=== PATIENT | female | born 1985 | race Caucasian/White ===

== ENCOUNTER → 2016-04-24 | Outpatient (CLI) | payer BC ==
[~2016-04-24] MED LIST: ACET-749 PO; MTR600X PO; PRENTAB26 PO
[2016-04-24 13:48] LABS: CHOLESTEROL/HDL RATIO 4.8; THYROID STIMULATING HORMONE 2.65 uIu/ml (0.300-4.500)
== END | disposition home or self-care (01) ==
LOC: C.LABMFLN 11:20
PROVIDERS: ATTEND Family Medicine
DX: Z13.1 Encounter for screening for diabetes mellitus (principal); Z13.220 Encounter for screening for lipoid disorders; E66.9 Obesity, unspecified

== ENCOUNTER → 2016-08-21 | Outpatient (CLI) | payer BC ==
[2016-08-21 14:43] LABS: BASO % 0.3 %; BASO ABS # 0.02 K/uL (0-0.2); COMPLETE YES; EOS % 1.9 %; HEMATOCRIT 39.2 % (37-47); IG% 0.3 %; LYMPH % 26.5 %; LYMPH ABS # 2.06 K/uL (1.2-3.4); MEAN CELL VOLUME 87.9 fL (80-100); MEAN CORPUSCULAR HEMOGLOBIN 29.4 pg (25-34); MEAN CORPUSCULAR HGB CONC 33.4 g/dl (32-36); MEAN PLATELET VOLUME 10.7 fL (7.4-10.4); MONO % 7.2 %; NEUT % 63.8 %; PLATELET COUNT 235 K/uL (130-400); RED BLOOD COUNT 4.46 M/uL (4.2-5.4); WHITE BLOOD COUNT 7.77 K/uL (4.8-10.8)
== END | disposition home or self-care (01) ==
LOC: C.LAB1850 12:32
PROVIDERS: ATTEND Obstetrics & Gynecology
DX: Z34.90 Encounter for supervision of normal pregnancy, unspecified, unspecified trimester (principal)

== ENCOUNTER → 2016-08-21 | Outpatient (CLI) | payer BC ==
[2016-08-21 16:53] LABS: URINE APPEARANCE CLEAR (CLEAR); URINE BILIRUBIN NEG (NEG); URINE COLOR DK YELLOW; URINE NITRITE NEG (NEG); URINE SPECIFIC GRAVITY 1.025 (1.000-1.030); UROBILINOGEN NEG (NEG)
[2016-08-21 17:05] LABS: MANUAL MICROSCOPIC REQUIRED? NO; REVIEW REQ? NO
[2016-08-24 07:27] LABS: CHLAMYDIA TRACH RNA*** NOT DETECTED (NOT DETECTED); GC (NEIS GONORRHOEAE)RNA** NOT DETECTED (NOT DETECTED)
== END | disposition home or self-care (01) ==
LOC: C.LABSPEC 15:54
PROVIDERS: ATTEND Obstetrics & Gynecology
DX: Z34.90 Encounter for supervision of normal pregnancy, unspecified, unspecified trimester (principal)

== ENCOUNTER → 2016-10-22 | Outpatient (CLI) | payer BC ==
[2016-10-22 14:48] LABS: GTGD 50 Grams
== END ==
LOC: C.LAB1850 10:10
PROVIDERS: ATTEND Obstetrics & Gynecology
DX: Z34.90 Encounter for supervision of normal pregnancy, unspecified, unspecified trimester (principal)

== ENCOUNTER → 2017-01-07 | Outpatient (CLI) | payer BC ==
[2017-01-07 11:20] LABS: URINE APPEARANCE CLEAR (CLEAR); URINE BILIRUBIN NEG (NEG); URINE COLOR YELLOW; URINE EPITHELIAL CELL AUTO >30 /lpf (0-5); URINE NITRITE NEG (NEG); URINE PH 6.5 (4.5-7.5); URINE SPECIFIC GRAVITY 1.016 (1.000-1.030); UROBILINOGEN NEG (NEG)
[2017-01-07 11:41] LABS: MANUAL MICROSCOPIC REQUIRED? NO; REVIEW REQ? NO
== END | disposition home or self-care (01) ==
LOC: C.LABSPEC 10:51
PROVIDERS: ATTEND Obstetrics & Gynecology
DX: Z34.82 Encounter for supervision of other normal pregnancy, second trimester (principal)

== ENCOUNTER → 2017-01-28 | Outpatient (CLI) | payer BC ==
[2017-01-28 10:38] LABS: HEMATOCRIT 35.3 % (37-47)
[2017-01-28 11:34] LABS: GTGD 50 Grams
== END | disposition home or self-care (01) ==
LOC: C.LAB1850 09:39
PROVIDERS: ATTEND Obstetrics & Gynecology
DX: Z34.82 Encounter for supervision of other normal pregnancy, second trimester (principal)

== ENCOUNTER → 2017-03-05 | Outpatient (CLI) | payer BC | END | disposition home or self-care (01) | LOC: C.LABSPEC 13:36 | PROVIDERS: ATTEND Obstetrics & Gynecology | DX: Z34.83 Encounter for supervision of other normal pregnancy, third trimester (principal) ==

== ENCOUNTER 2017-04-07 02:00 | Inpatient (IN) | payer BC ==
[~2017-04-07] VITALS: Ht 165.1 cm; Wt 110.2 kg
[2017-04-07] MEDS ORDERED: LACTATED RINGER'S 1000ML 1,000 ML IV PRN (02:10)
[2017-04-07] MEDS ORDERED: LACTATED RINGER'S 1000ML 1,000 ML IV SCH (02:10)
[2017-04-07] MEDS ORDERED: BUPIVACAINE 0.25% 30 ML VIAL ONE (02:11)
[2017-04-07] MEDS ORDERED: FENTANYL CITRATE INJ 50 MCG/1 ML 2 ML VIAL ONE (02:11)
[2017-04-07] MEDS ORDERED: EpHEDrine SULFATE INJ 50 MG/ML AMP ONE (02:11)
[2017-04-07] MEDS ORDERED: FENTANYL 2MCG/ML ROPIV 1.25MG/ML 100ML BAG EPI ONE (02:12)
[2017-04-07 02:25] VITALS: Ht 165.1 cm; Wt 110.2 kg
[2017-04-07 02:38] LABS: HEMATOCRIT 37.6 % (37-47); HEMOGLOBIN 12.9 g/dL (12.0-16.0); MEAN CELL VOLUME 88.1 fL (80-100); MEAN CORPUSCULAR HEMOGLOBIN 30.2 pg (25-34); MEAN CORPUSCULAR HGB CONC 34.3 g/dl (32-36); MEAN PLATELET VOLUME 11.3 fL (7.4-10.4); PLATELET COUNT 175 K/uL (130-400); RED CELL DISTRIBUTION WIDTH CV 13.3 % (11.5-14.5); WHITE BLOOD COUNT 10.05 K/uL (4.8-10.8)
[2017-04-07] MEDS ORDERED: OXYTOCIN 30 UNITS/500ML NSS IV ONE (03:17)
[2017-04-07] MEDS ORDERED: LACTATED RINGER'S 1000ML 500 ML IV PRN (03:21)
[2017-04-07] MEDS ORDERED: NALOXONE HCL INJ 1 MG in SODIUM CHLORIDE 0.9% 1000ML 1,000 ML IV PRN (03:21)
[2017-04-07] MEDS ORDERED: EpHEDrine SULFATE INJ 50 MG/ML AMP IV PRN (03:30)
[2017-04-07] MEDS ORDERED: NALOXONE HCL INJ 0.4 MG/1 ML VIAL/CARP IV PRN (03:30)
[2017-04-07] MEDS ORDERED: ONDANSETRON INJ 2 MG/ML 2 ML VIAL IV PRN (03:30)
[2017-04-07] MEDS ORDERED: DiphenhydrAMINE HCL 50 MG/ML VIAL IV PRN (03:30)
[2017-04-07] MEDS ORDERED: NALBUPHINE HCL INJ 10 MG/ML AMP IV PRN (03:30)
[2017-04-07] MEDS ORDERED: FENTANYL 2MCG/ML ROPIV 1.25MG/ML 100ML BAG EPI PRN (03:30)
[2017-04-07] MEDS ORDERED: OXYCODONE/ACETAMINOPHEN 5-325 TAB PO PRN (03:45)
[2017-04-07] MEDS ORDERED: DIPHTHERIA/TETANUS/PERTUSSIS 0.5 ML SYR/VIAL IM. ONE (03:45)
[2017-04-07] MEDS ORDERED: HYDROCORTISONE ACETATE 25 MG SUPP PR PRN (03:45)
[2017-04-07] MEDS ORDERED: OXYTOCIN 30 UNITS/500ML NSS IV PRN (03:45)
[2017-04-07] MEDS ORDERED: BENZOCAINE 20% AER SPR 82.5 GM CAN EXT PRN (03:45)
[2017-04-07] MEDS ORDERED: ACETAMINOPHEN/CODEINE 300/30MG TAB PO PRN ×2 (03:45)
[2017-04-07] MEDS ORDERED: SUPERCREAM 0.870 % 15GM JAR EXT PRN (03:45)
[2017-04-07] MEDS ORDERED: ACETAMINOPHEN 325 MG TAB PO PRN (03:45)
[2017-04-07] MEDS ORDERED: LANOLIN OINT EXT PRN (03:45)
--- NOTE | 2017-04-07 03:50 | Anesthesia Procedure Note ---
Anesthesia Epidural Removal Nt Date & Time Apr 07, 2017 at 03:50 Vital Signs Pain Intensity: 9.0 Notes Mental Status: alert / awake / arousable, participated in evaluation Nausea / Vomiting: adequately controlled Pain: adequately controlled Airway Patency, RR, SpO2: stable & adequate BP & HR: stable & adequate Hydration State: stable & adequate Neuraxial Anesthesia: was administered, sensory block is resolving Anesthetic Complications: no major complications apparent, pt satisfied with anesthetic care Epidural: removed without complications, with tip intact
[2017-04-07] MEDS: IBUPROFEN 600 MG TAB PO PRN ×3 (04:25→17:31)
[2017-04-07 06:15] VITALS: BP 128/74; PULSE 70; TEMP 36.7
--- NOTE | 2017-04-07 06:40 | DELIVERY SUMMARY ---
DATE OF OPERATION: 04/07/2017 Magdalene is a 41 weeks, second baby, group B strep negative, uncomplicated . She arrived in labor and deliver in active labor at 8 cm. She requested epidural and received this. Later after her epidural she found the urge to push. Her membranes were ruptured for thin meconium and baby was at the perineum and she was ready to push. She pushed over several contractions and delivered a baby in right occiput anterior position. Mouth and then nares suctioned with bulb. Loose nuchal cord passed over the head. Gentle traction used. Baby delivered without excessive force. Live vigorous male infant. Cord clamped and cut. Cord gas was obtained. Cord blood obtained. Placenta removed with gentle traction. Second degree tear repaired with 3-0 Vicryl. Estimated blood loss was 300 mL. Sponge, needle and instrument counts were correct. I attest to the content of the Intraoperative Record and any orders documented therein. Any exception s are noted below.
[2017-04-07 07:45] VITALS: BP 114/73; PULSE 74; TEMP 36.8
[2017-04-07] MEDS: PRENATAL VITAMIN TAB PO SCH (08:48)
[2017-04-07] MEDS: DOCUSATE SODIUM 100 MG CAP PO SCH ×2 (08:48→19:54)
[2017-04-07 11:45] VITALS: BP 119/76; PULSE 71; TEMP 36.5
[2017-04-07 16:05] VITALS: BP 118/77; PULSE 86; TEMP 36.8; O2SAT 96
[2017-04-07 20:00] VITALS: BP 134/84; PULSE 91; TEMP 36.5; O2SAT 97
[2017-04-07 23:40] VITALS: BP 130/82; PULSE 72; TEMP 36.8
[2017-04-08 03:20] VITALS: BP 109/71; PULSE 79; TEMP 36.3
[2017-04-08] MEDS: IBUPROFEN 600 MG TAB PO PRN ×4 (03:27→19:36)
[2017-04-08 06:18] LABS: HEMATOCRIT 36.5 % (37-47); HEMOGLOBIN 12.4 g/dL (12.0-16.0)
--- NOTE | 2017-04-08 06:24 | Progress Note ---
Subjective Apr 08, 2017. Subjective conversation w/ patient (Patient seen and examined at bedside) Ambulation: ambulating normally Voiding: no voiding problems Passing Gas: Yes Diet Tolerance: Regular Diet Lochia: Moderate Feeding Type: Breast Feeding Pain: 2/10 pain noted, well controlled w/motrin Comment: Pt states she had problems with hemorrhoids after prior and is concerned that they are flaring up again. Review of Systems Constitutional: No fever, No chills, No sweats Respiratory: No cough, No shortness of breath Cardiac: No chest pain Abdomen: No pain, No nausea, No vomiting Female : No dysuria Objective Vital Signs Date Time Temp Pulse Resp B/P (MAP) Pulse Ox O2 Delivery O2 Flow Rate FiO2 04/08/17 03:20 36.3 79 20 109/71 (84) Room Air 04/07/17 23:40 Room Air 04/07/17 23:40 36.8 72 18 130/82 (98) Room Air 04/07/17 20:00 36.5 91 18 134/84 (101) 97 Room Air 04/07/17 16:05 96 Room Air 04/07/17 16:05 36.8 86 18 118/77 (91) 96 Room Air 04/07/17 11:45 36.5 71 16 119/76 (90) Room Air 04/07/17 07:45 Room Air 04/07/17 07:45 36.8 74 18 114/73 (87) Room Air Physical Exam General Appearance: WELL-APPEARING, WD/WN, NO APPARENT DISTRESS Respiratory/Chest: chest non-tender, lungs clear, normal breath sounds Cardiovascular: regular rate, rhythm, no edema, no gallop, no murmur Abdomen: normal bowel sounds, non tender, soft Fundus: Firm, Non-Tender, Relation to Umbilicus (1 below) Extremities: normal inspection, no pedal edema, no calf tenderness Laboratory Results Last 24 Hours Test 04/08/17 06:10 Medications Current Inpatient Medications Medications (Trade) Dose Ordered Sig/Elbert Route Start Time Stop Time Status Last Admin Dose Admin Oxytocin (Pitocin IV) 30 units UD PRN IV 04/07/17 03:45 05/07/17 03:44 Benzocaine (Dermoplast Aero Spr) 1 appln PRN PRN EXT 04/07/17 03:45 05/07/17 03:44 04/07/17 17:31 1 APPLN Cocaine HCl (Supercream 0.870% Cr) BID PRN EXT 04/07/17 03:45 04/21/17 03:44 Hydrocortisone Acetate (Anusol Hc Supp) 25 mg BID PRN AK 04/07/17 03:45 05/07/17 03:44 Lanolin (Lanolin Oint) PRN PRN EXT 04/07/17 03:45 05/07/17 03:44 Prenat Multivit/ [place]/Iron/Folic Ac ( Vitamin Tab) 1 tab DAILY PO 04/07/17 08:00 05/07/17 07:59 04/07/17 08:48 1 TAB Ibuprofen (Motrin Tab) 600 mg Q4H PRN PO 04/07/17 03:45 05/07/17 03:44 04/08/17 03:27 600 MG Acetaminophen (Tylenol Tab) 650 mg Q6H PRN PO 04/07/17 03:45 05/07/17 03:44 Acetaminophen/ Codeine Phosphate (Tylenol w/ Codeine #3 Tab) 1 tab Q4H PRN PO 04/07/17 03:45 05/07/17 03:44 Acetaminophen/ Codeine Phosphate (Tylenol w/ Codeine #3 Tab) 2 tab Q4H PRN PO 04/07/17 03:45 05/07/17 03:44 Bisacodyl (Dulcolax Tab) 5 mg 20 PO 04/08/17 20:00 04/08/17 20:01 Bisacodyl (Dulcolax Supp) 10 mg DAILY PRN AK 04/09/17 07:00 Docusate Sodium (coLACE CAP) 100 mg BID PO 04/07/17 08:00 05/07/17 07:59 04/07/17 19:54 100 MG Assessment and Plan Post- Day#: 1 Continue Routine Care: 31 year old s/p NVD day 1 - pt doing well clinically - O+, GBS -ve and rubella immune - vitals reviewed and wnl - continue to encourage ambulation and - motrin prn for pain - hemorrhoids - continue supercream Resident Physician Supervision Note: I was present with Dr. Scott during the history and exam. I discussed the case with the resident and agree with the findings and plan as documented in the note. Any exceptions or clarifications are listed here: PPD#1 doing well. Has hemorrhoid pain - will try supercream. Plans for home tomorrow. Documented By: Veronica Tineo Resident Tracking Resident Involvement: Resident Care Provided Care Provided: OB Delivery
--- NOTE | 2017-04-08 06:41 | Discharge Instructions ---
Discharge Instructions Date of Service Apr 08, 2017. Admission Reason for Admission: Normal Labor Discharge Discharge Diagnosis / Problem: Vaginal Delivery Discharge Goals Goal(s): Routine recovery after delivery Medications Continue Dispensed Medications: supercream, dermaplast, tucks, lansinoh Activity Recommendations Activity Limitations: per Instructions/Follow-up section . Instructions / Follow-Up Instructions / Follow-Up ACTIVITY RECOMMENDATIONS: * Gradual return to full activity over the next 2-3 weeks. * No lifting - nothing heavier than baby over the next 2-3 weeks. * Do not engage in vigorous exercise, sexual activity or sports until cleared by your physician. * Do not drive or operate any motorized equipment until cleared by your physician. * You may shower/bathe daily. MEDICATIONS: For discomfort or pain, you may use Acetaminophen (Tylenol), Ibuprofen (Advil), or Naproxen (Aleve) following the package directions. For constipation you may use Colace following the package directions. BREAST CARE: If you are not breast feeding: * Wear a supportive bra 24 hours a day for one to two weeks. * Avoid stimulating your breasts and nipples as much as possible during the first few weeks after delivery. * When taking a shower, have the warm water hit your back, not breasts. * When your breasts feel full, apply ice packs. Usually three to four times a day helps ease the discomfort. * Take a mild pain medication (Tylenol / Motrin) when you are uncomfortable. If breast feeding: * Use breast milk to lubricate nipples. Lansinoh cream may be used for sore nipples. You do not need to remove cream prior to breast feeding. If using a different brand of cream, check the label for directions regarding removal of cream prior to nursing. * Wear a supportive bra. * If having problems with breasts or breast feeding, call a customer service consultant or your health care provider. EPISIOTOMY CARE: After delivery, if you have an episiotomy (stitches), the following steps will ease discomfort and aid healing. * For the first 24 hours after delivery, place ice packs next to your episiotomy to help reduce swelling. * After the first 24 hour-period, sitz baths, either portable or in the tub, are suggested. A shower with a shower arm sprayed over the episiotomy may be comforting. * Judy care should be done after each voiding and bowel movement. Squirt warm water from a plastic bottle over the perineum (region of the body between the anus and urinary opening) and pat dry. * Use Dermoplast to ease discomfort. Shake container. [place] directly over the episiotomy. Place a Tucks on a clean sanitary pad next to your episiotomy. SPECIAL CARE INSTRUCTIONS: When you are discharged from the hospital, it is important for you to follow the instructions listed below: * During the first week at home, you should be able to care for yourself and your baby. In addition, the usual light household activities are encouraged. * Limit your activities to the way you feel. Do not try to clean the house or move furniture. Be sensible. * If you actively engage in sports and have done so up until the time of your delivery, you may resume these activities as soon as you feel able. This may take up to one month or even longer. Use good judgment. * Continue to take your vitamins for at least six weeks after the of your baby. * Your diet need not be limited unless you were on a special diet before your delivery. Breast-feeding mothers need around 2500 calories per day and at least 64-80 ounces of fluid per day (8 to 10 glasses). * You should eat foods from the four major food groups. Crash diets or fad diets are to be avoided. Eating lean meats, fresh fruits and vegetables, low-fat dairy products, high fiber foods and a regular exercise program, will help you get back to your pre- weight without putting your health at risk. * Constipation is sometimes a problem after delivery. Take a mild laxative as needed. If breast feeding, Milk of Magnesia is acceptable to use. You may use a suppository or Fleets enema if no episiotomy. * A daily shower or tub bath is suggested. Be sure to thoroughly and gently dry the perineum. * A bloody vaginal discharge will usually continue until around four weeks post . A small amount of bleeding may continue for as long as six weeks. Vaginal discharge changes from the bright red bleeding after delivery to pink then brownish and finally yellowish-pink before becoming white and disappearing. * Bleeding may increase with activity. Your first period may come in 4-8 weeks. If you are breast feeding, your period may be delayed even longer. * [place] (sex) can begin whenever both you and your partner feel comfortable and do not have any form of genital infection. It is recommended that you wait at least six weeks for internal and external healing to occur. If you have questions, please talk to your health care practitioner. A condom should be used to prevent infection and . * Foreplay, gentle intercourse and lubrication is very important the first several times to prevent pain. A water-based lubricant such as K-Y jelly or Astroglide may be used. * If you have RH negative blood and your baby is RH positive, you will receive RHOGAM by injection prior to discharge. The nurse will give you a card to keep with you that has the date and place that you received RHOGAM after delivery. * During your care, you had a Rubella screen done to check for the presence of rubella antibodies in your blood. If your test was negative, you will receive a Rubella vaccine prior to discharge. This vaccine may cause a fever, soreness at the injection site and flu-like symptoms. If these symptoms persist, notify your health care practitioner. is not advised for one month after a Rubella vaccine. * Verbalizes understanding of car seat law as reviewed with patient nursing. * Car Seat hand-out given and reviewed with patient by nursing. * Shaken baby information reviewed with patient by nursing. Call you doctor if: * Heavy bleeding (saturating several pads an hour) or passing clots the size of your fist. * A fever >101 degrees F (38.3 degrees C) on two occasions four hours apart and /or chills. * Unusual pain in the pelvic or vaginal areas. * "Baby Blues" lasting longer than two weeks. If you have any questions or concerns, call your health care practitioner at . FOLLOW UP VISIT: * Please call the office at to schedule a 6 week examination. It is important you keep this appointment. It is important for you to make arrangements for either yearly or twice yearly check-ups thereafter. Current Hospital Diet Patient's current hospital diet: Regular OB Diet Discharge Diet Recommended Diet: Regular Diet Pending Studies Studies pending at discharge: no Medical Emergencies . Who to Call and When: Medical Emergencies: If at any time you feel your situation is an emergency, please call 911 immediately. . Non-Emergent Contact Non-Emergency issues call your: Primary Care Provider . . "Provider Documentation" section prepared by Lavon Scott. . VTE Core Measure Inpt VTE Proph given/why not?: Treatment not indicated
[2017-04-08 08:30] VITALS: BP 120/86; PULSE 88; TEMP 36.5
[2017-04-08] MEDS: DOCUSATE SODIUM 100 MG CAP PO SCH ×2 (08:58→19:36)
[2017-04-08] MEDS: PRENATAL VITAMIN TAB PO SCH (08:58)
[2017-04-08 15:30] VITALS: BP 120/77; PULSE 80; TEMP 36.4; O2SAT 97
[2017-04-08] MEDS: BISACODYL 5 MG TABEC PO SCH ×2 (19:36→21:16)
[2017-04-09 00:35] VITALS: BP 125/80; PULSE 84; TEMP 36.8; O2SAT 97
[2017-04-09] MEDS: IBUPROFEN 600 MG TAB PO PRN (05:15)
--- NOTE | 2017-04-09 06:15 | Progress Note ---
Subjective Apr 09, 2017. Subjective conversation w/ patient (Patient seen and examined at the bedside) Ambulation: ambulating normally Voiding: no voiding problems Diet Tolerance: Regular Diet Lochia: Moderate Feeding Type: Breast Feeding Pain: 3-5/10 cramping with Review of Systems Constitutional: No fever, No chills, No sweats Respiratory: No cough, No shortness of breath Cardiac: No chest pain, No edema Abdomen: No pain, No nausea, No vomiting, No diarrhea Female : No dysuria Objective Vital Signs Date Time Temp Pulse Resp B/P (MAP) Pulse Ox O2 Delivery O2 Flow Rate FiO2 04/09/17 00:35 97 Room Air 04/09/17 00:35 36.8 84 20 125/80 (95) 97 Room Air 04/08/17 15:30 36.4 80 18 120/77 (91) 97 Room Air 04/08/17 15:30 97 Room Air 04/08/17 08:30 36.5 88 20 120/86 (97) Physical Exam General Appearance: WELL-APPEARING, WD/WN, NO APPARENT DISTRESS Respiratory/Chest: chest non-tender, lungs clear, normal breath sounds, no respiratory distress, no accessory muscle use Cardiovascular: regular rate, rhythm, no edema, no gallop, no murmur Abdomen: normal bowel sounds, non tender, no organomegaly Fundus: Firm, Non-Tender, Relation to Umbilicus (2 below u) Extremities: normal range of motion, normal inspection, no pedal edema, no calf tenderness Laboratory Results Last 24 Hours Test 04/09/17 04:44 Medications Current Inpatient Medications Medications (Trade) Dose Ordered Sig/Elbert Route Start Time Stop Time Status Last Admin Dose Admin Oxytocin (Pitocin IV) 30 units UD PRN IV 04/07/17 03:45 05/07/17 03:44 Benzocaine (Dermoplast Aero Spr) 1 appln PRN PRN EXT 04/07/17 03:45 05/07/17 03:44 04/07/17 17:31 1 APPLN Cocaine HCl (Supercream 0.870% Cr) BID PRN EXT 04/07/17 03:45 04/21/17 03:44 04/08/17 06:45 15 GM Hydrocortisone Acetate (Anusol Hc Supp) 25 mg BID PRN [place] 04/07/17 03:45 05/07/17 03:44 Lanolin (Lanolin Oint) PRN PRN EXT 04/07/17 03:45 05/07/17 03:44 Prenat Multivit/ [place]/Iron/Folic Ac ( Vitamin Tab) 1 tab DAILY PO 04/07/17 08:00 05/07/17 07:59 04/08/17 08:58 1 TAB Ibuprofen (Motrin Tab) 600 mg Q4H PRN PO 04/07/17 03:45 05/07/17 03:44 04/09/17 05:15 600 MG Acetaminophen (Tylenol Tab) 650 mg Q6H PRN PO 04/07/17 03:45 05/07/17 03:44 04/08/17 16:36 650 MG Acetaminophen/ Codeine Phosphate (Tylenol w/ Codeine #3 Tab) 1 tab Q4H PRN PO 04/07/17 03:45 05/07/17 03:44 Acetaminophen/ Codeine Phosphate (Tylenol w/ Codeine #3 Tab) 2 tab Q4H PRN PO 04/07/17 03:45 05/07/17 03:44 Bisacodyl (Dulcolax Supp) 10 mg DAILY PRN [place] 04/09/17 07:00 Docusate Sodium (coLACE CAP) 100 mg BID PO 04/07/17 08:00 05/07/17 07:59 04/08/17 19:36 100 MG Assessment and Plan Post- Day#: 2 Continue Routine Care: 31 year old s/p NVD day 2 - pt doing well clinically - O+, GBS -ve and rubella immune - vitals reviewed and wnl - continue to encourage ambulation and - continue motrin prn for pain - Hgb stable. 12.9 -> 12.4. Will review today's results when available. - hemorrhoids - continue supercream, stool softeners. Advised PCP follow up after d/c - will discuss d/c instructions as pt ready for discharge today Lavon Scott, PGY1 Resident Physician Supervision Note: I was present with Dr. Scott during the history and exam. I discussed the case with the resident and agree with the findings and plan as documented in the note. Any exceptions or clarifications are listed here: doing well, ready for discharge. discussed hemorrhoids and routine instructions. f/u 6 wks pp check. Documented By: Hilary Mccollum Resident Tracking Resident Involvement: Resident Care Provided Care Provided: OB Delivery
[2017-04-09] MEDS ORDERED: BISACODYL 10 MG SUPP PR PRN (07:00)
[2017-04-09 07:40] VITALS: BP 115/79; PULSE 80; TEMP 36.6
[2017-04-09] MEDS: DOCUSATE SODIUM 100 MG CAP PO SCH (07:45)
[2017-04-09] MEDS: PRENATAL VITAMIN TAB PO SCH (07:45)
[2017-04-09 07:51] LABS: HEMATOCRIT 33.7 % (37-47); HEMOGLOBIN 11.5 g/dL (12.0-16.0); MEAN CELL VOLUME 89.2 fL (80-100); MEAN CORPUSCULAR HEMOGLOBIN 30.4 pg (25-34); MEAN CORPUSCULAR HGB CONC 34.1 g/dl (32-36); MEAN PLATELET VOLUME 11.3 fL (7.4-10.4); PLATELET COUNT 172 K/uL (130-400); RED CELL DISTRIBUTION WIDTH CV 13.3 % (11.5-14.5); RED CELL DISTRIBUTION WIDTH SD 42.8 fL (36.4-46.3); WHITE BLOOD COUNT 9.13 K/uL (4.8-10.8)
[2017-04-09 10:35] VITALS: BP 115/79; PULSE 80; TEMP 36.6; O2SAT 97
== END 2017-04-09 11:45 | disposition home or self-care (01) | DRG 775 ==
LOC: C.LD 02:00 → C.OPB 02:00 → C.LD 02:11 → C.OPB 02:11 → C.OBG 06:34
PROVIDERS: ADMIT Obstetrics & Gynecology; ATTEND Obstetrics & Gynecology
PROC: 0KQM0ZZ Repair Perineum Muscle, Open Approach (ICD-10-PCS; principal; 2017-04-07)
PROC: 10E0XZZ Delivery of Products of Conception, External Approach (ICD-10-PCS; principal; 2017-04-07)
DX: O77.0 Labor and delivery complicated by meconium in amniotic fluid (principal); O22.43 Hemorrhoids in pregnancy, third trimester; O87.2 Hemorrhoids in the puerperium; O70.1 Second degree perineal laceration during delivery; O69.81X0 Labor and delivery complicated by cord around neck, without compression, not applicable or unspecified; Z3A.41 41 weeks gestation of pregnancy; Z37.0 Single live birth

== ENCOUNTER → 2017-04-27 | Outpatient (CLI) | payer BC ==
[~2017-04-27] MED LIST changes: -ACET-749 PO
[2017-04-27 13:23] LABS: ALBUMIN 3.7 gm/dl (3.4-5.0); BLOOD UREA NITROGEN 12 mg/dl (7-18); CALCIUM 8.9 mg/dl (8.5-10.1); CARBON DIOXIDE 26 mmol/L (21-32); CREATININE 1.17 mg/dl (0.60-1.20); GLUCOSE 94 mg/dl (70-99); PHOSPHORUS 3.6 mg/dl (2.5-4.9); POTASSIUM 3.7 mmol/L (3.5-5.1); SODIUM 133 mmol/L (136-145)
== END | disposition home or self-care (01) ==
LOC: C.LABMFLN 09:43
PROVIDERS: ATTEND Family Medicine
DX: E86.0 Dehydration (principal)

== ENCOUNTER 2019-11-20 20:16 | Inpatient (IN) ==
[2019-11-20] MEDS ORDERED: LACTATED RINGER'S 1,000 ML IV PRN (21:08)
[2019-11-20] MEDS ORDERED: OXYTOCIN 30 UNITS/500 ML BAG IV PRN ×3 (21:08→23:10)
[2019-11-20 21:33] LABS: Hematocrit (blood only) 38.6 % (37-47); Hemoglobin 13.3 g/dL (12.0-16.0); Mean Corpuscular Hemoglobin 30.8 pg (25-34); Mean Corpuscular Volume 89.4 fL (80-100); Mean Platelet Volume 11.8 fL (7.4-10.4); Platelet Count 189 K/uL (130-400); RDW Coefficient of Variation 12.7 % (11.5-14.5); RDW Standard Deviation 41.2 fL (36.4-46.3); Red Blood Count 4.32 M/uL (4.2-5.4)
[2019-11-20] MEDS ORDERED: ePHEDrine sulfate 50 MG/ML AMP ONE (21:44)
[2019-11-20] MEDS ORDERED: BUPIVACAINE 0.25% 30 ML VIAL ONE (21:44)
[2019-11-20] MEDS ORDERED: fentaNYL 2MCG/ML ROPIV 1.25MG/ML 100 ML BAG EPI ONE (21:45)
[2019-11-20] MEDS ORDERED: fentaNYL citrate 100 MCG/2 ML VIAL ONE (21:45)
[2019-11-20 21:52] LABS: Mean Corpuscular Hgb Conc 34.5 g/dL (32-36)
--- NOTE | 2019-11-20 21:55 | History & Physical Report ---
Date of Service November 20, 2019 Assessment & Plan (1) Encounter for supervision of normal in multigravida: -Tracing category 2 with accelerations and variability's -Patient desires epidural -Anticipate vaginal delivery History of Present Illness Chief Complaint: Labor Primary Care Provider: Jess Zavala MD The patient is a 34-year-old 5 para 2 with an EDC of 27 November at 38+ weeks gestational age presents to labor and delivery in active labor. Patient states her contractions began earlier than that in the day and increased in frequency. She denied vaginal bleeding or leaking of fluid. The patient has had a benign course. Laboratory values for the show blood type of O+, antibody negative, rubella immune, hepatitis B negative, she had a negative cell free DNA screen, she declined cystic fibrosis, SMA, and maternal serum AFP. She had an elevated 1 hour Glucola at 28 weeks with a normal 2-hour glucose tolerance test. She had negative third trimester beta strep culture. She had a negative third trimester COVID screen. Patient is asymptomatic. Allergies Allergy/AdvReac Type Severity Reaction Status Date / Time erythromycin base Allergy Unknown HIVES Verified 11/20/19 14:25 Penicillins Allergy Unknown HIVES Verified 11/20/19 14:25 Home Medications Home Medications Medication Instructions Recorded Confirmed Type prenat.vits,edith,suv-evki-pzxti 1 tab PO DAILY 11/25/18 11/20/19 History Patient History Medical History Asthma Hyperlipidemia Missed Varicella Surgical History S/P wisdom tooth extraction Family History Father Diabetes Grandmother (Maternal) Diabetes Grandfather (Maternal) Colorectal cancer Grandmother (Paternal) Uterine cancer Ovarian cancer Social History Smoking Status: Never smoker Second Hand Exposure: No; Do You Dip or Chew Tobacco: No; Tobacco Cessation Education Requested by Patient: No Hx Alcohol Use: No Hx Substance Use: No Preferred Language: Mauritanian Communication Ability: Effective Traveling Sales Executive Required: No Beliefs That Will Affect Care: None marital status: marital status details: Gigi Schwartz (32) [phone] Current Living Situation: Spouse and Family Current Living Situation Comment: spouse and two kids current occupational status: employed current occupation: [employer] Other Information That Helps Us Care for You: No Feels Safe at Home: Yes Safety Concerns: Feels Safe At This Time Assistive Devices: None Physical Exam Constitutional: WD/WN, vitals as above Respiratory: Auscultation: lungs clear to auscultation bilaterally Cardiovascular: RRR, no murmur, no edema Extremities: no calf tenderness Gastrointestinal (Abdomen): Gravid, vertex, positive heart tones, estimated weight of 8 pounds Genitourinary: Cervix: complete/(+)2 Results & Data ([facility]) Vital Signs (Past 12 Hours) Vital Signs Temp Pulse Resp BP 11/20/19 21:09 98.2 F 18 11/20/19 20:42 95 H 134/87 11/20/19 20:39 98.2 F 18 Coding Level of Care Code None Diagnoses Encounter for supervision of normal in multigravida Z34.80
--- NOTE | 2019-11-20 22:32 | Delivery Summary ---
Vaginal Delivery Summary Date of Service November 20, 2019 Vaginal Delivery Summary Findings: viable Female, Apgars 8/9, NC x1, placenta delivered spontaneously, meconium stained, cord blood and cord gas samples obtained perineum intact estimated blood loss 300 cc Labor note: The patient is a 34-year-old 5 para 2 with an EDC of 27 November at 38+ weeks gestational age presents to labor and delivery in active labor. Patient states her contractions began earlier than that in the day and increased in frequency. She denied vaginal bleeding or leaking of fluid. The patient has had a benign course. Laboratory values for the show blood type of O+, antibody negative, rubella immune, hepatitis B negative, she had a negative cell free DNA screen, she declined cystic fibrosis, SMA, and maternal serum AFP. She had an elevated 1 hour Glucola at 28 weeks with a normal 2-hour glucose tolerance test. She had negative third trimester beta strep culture. She had a negative third trimester COVID screen. Patient is asymptomatic. Upon admission the patient was 5 cm she was ambulating and had spontaneous rupture of membranes and was fully dilated. She began to push uncontrollably and delivered a viable female with Apgars of 8 and 9 over an intact perineum nuchal cord x1 reduced. Cord blood samples cord gases obtained placenta delivered spontaneously perineum was found to be intact estimated blood loss 300 cc sponge and needle count was correct. [facility] Vaginal Delivery Charge Vaginal Delivery Codes: 62877 global code for the antepartum, delivery, and post-
[2019-11-20 22:43] LABS: Base Excess Cord Venous Blood -1.6 mEq/L (-7.7-1.9); Cord Venous Blood HCO3 23 mmol/L (18.4-26.8); Cord Venous Blood PCO2 39 mmHg (30.4-57.2); Cord Venous Blood PO2 36 mmHg (14.1-43.3); Cord Venous Blood pH 7.39 (7.20-7.44)
[2019-11-20 22:44] LABS: Base Excess Cord Arterial Bld -1.5 mEq/L (-9-1.8); CO2 Cord Arterial Blood 56 mmHg (39.1-73.5); HCO3 Cord Arterial Blood 27 mmol/L (19.7-28.5); Oxygen Sat Cord Arterial Blood < 60.0 % (<60); PO2 Cord Arterial Blood 24 mmHg (4.1-31.7); pH Cord Arterial Blood 7.29 (7.1-7.38)
[2019-11-20] MEDS ORDERED: DIPHTHERIA/TETANUS/PERTUSSIS 0.5 ML SYR/VIAL IM ONE (23:10)
[2019-11-20] MEDS ORDERED: ACETAMINOPHEN 325 MG TAB PO PRN (23:10)
[2019-11-20] MEDS ORDERED: BENZOCAINE 20% AER SPR 82.5 GM CAN EXT PRN (23:10)
[2019-11-20] MEDS ORDERED: bisacodyL 10 MG SUPP PR PRN (23:10)
[2019-11-20] MEDS ORDERED: SUPERCREAM 0.870% 15 GM JAR EXT PRN (23:10)
[2019-11-20] MEDS ORDERED: HYDROCORTISONE ACETATE 25 MG SUPP PR PRN (23:10)
[2019-11-20] MEDS: IBUPROFEN 600 MG TAB PO PRN (23:24)
[2019-11-21] MEDS: IBUPROFEN 600 MG TAB PO PRN ×4 (04:29→20:56)
--- NOTE | 2019-11-21 05:35 | Obstetrical Progress Note ---
Date of Service November 21, 2019 Assessment & Plan (1) : S/p Day 1 - Feels well today. Eating well, voiding well, ambulating well. - Pain well-controlled with ibuprofen 600mg Q4H PRN. - Vital signs reviewed and WNL. - Hemoglobin reviewed. 13.3 yesterday - Blood Type: O+, GBS negative, Rubella Immune, COVID-19 negative - Continue routine post- care: encourage ambulation, monitor and control pain with Motrin PRN, continue regular OB diet, monitor lochia - Encourage breast feeding. - After discharge, will have 6-wk follow-up with [facility] SUPERVISOR MOLDING Admission and Anticipated Discharge Date Admission Date: November 20, 2019 Supervising Physician Co-Signing Physician Notes Resident Physician Supervision Note: I was present with Dr. Borrego during the history and exam. I discussed the case with the resident and agree with the findings and plan as documented in the note. Any exceptions or clarifications are listed here: Discussed delivery, routine care, doing well Documented By: Afshin Butler Jr, MD, FACOG Subjective HPI Magdalene Schwartz is a 34 y/o female who is PPD 1 spontaneous vaginal delivery at 38 6/7 weeks. She reports feeling well overall this morning. No abdominal cramping and 0-2/10 pain well managed on analgesics. Voiding well. Tolerating meals overnight without difficulty. Patient has been able to ambulate some. Not passing gas and no bowel movements yet. Has persistent lochia with minimal improvement so far this morning. Currently . Review of Systems Review of Systems: ROS Denies fever or chills. Denies shortness of breath or cough. Denies chest pain. Denies breast pain. Denies dysuria. Denies leg pain or leg swelling. Physical Exam Physical Exam: PE General: Alert, oriented. No acute distress. Cardiac: Regular rate and rhythm. No murmurs. Respiratory: Clear to auscultation bilaterally a/p, no wheezes/rales/rhonchi. No increased work of breathing. Symmetrical chest rise. No respiratory distress. Abdomen: Soft, nontender, nondistended. Bowel sounds present. Uterus: Uterine fundus firm, palpable 2 cm below umbilicus. Lower Extremities: No lower extremity edema or swelling. No deep calf pain. Janae's negative bilaterally. Results & Data ([facility]) Vital Signs (Past 12 Hours) Vital Signs Temp Pulse Pulse Resp BP BP 11/21/19 04:20 36.7 C 79 16 109/72 11/21/19 01:05 36.7 C 93 H 18 144/62 H 11/21/19 00:28 83 20 123/70 11/21/19 00:12 82 141/75 H 11/20/19 23:57 80 18 141/79 H 11/20/19 23:42 75 132/79 11/20/19 23:27 78 18 129/75 11/20/19 23:12 18 128/69 11/20/19 22:57 78 20 121/62 11/20/19 22:43 83 132/61 11/20/19 22:42 20 11/20/19 22:27 36.6 C 94 H 94 H 18 152/69 H 152/69 H 11/20/19 22:18 107 H 146/71 H 11/20/19 21:09 36.8 C 18 11/20/19 20:42 95 H 134/87 11/20/19 20:39 36.8 C 18 Resident Activity Tracking Resident Involvement: Resident Care Provided Care Provided: OB Delivery
[2019-11-21] MEDS: DOCUSATE SODIUM 100 MG CAP PO SCH ×2 (08:03→20:17)
[2019-11-21] MEDS: PRENATAL VITAMIN 1 TAB PO SCH (08:05)
[2019-11-21] MEDS ORDERED: bisacodyL 5 MG TABEC PO SCH (20:00)
--- NOTE | 2019-11-22 05:26 | Obstetrical Progress Note ---
Date of Service November 22, 2019 Assessment & Plan (1) : S/p Day 2 - Feels well today. Eating well, voiding well, ambulating well. - Pain well-controlled with ibuprofen 600mg Q4H PRN. - Vital signs reviewed and WNL. - Hemoglobin reviewed. 13.3 --> 11.7 (today) - Blood Type: O+, GBS negative, Rubella Immune, COVID-19 negative - Continue routine post- care: encourage ambulation, monitor and control pain with Motrin PRN, continue regular OB diet, monitor lochia - Encourage breast feeding. - went over discharge instructions this morning - After discharge, will have 6-wk follow-up with D[facility] [employer] Admission and Anticipated Discharge Date Admission Date: November 20, 2019 Supervising Physician Co-Signing Physician Notes I have reviewed the resident's note and examined the patient myself, and agree with the note above. Subjective HPI Magdalene Schwartz is a 34 y/o female who is PPD 2 spontaneous vaginal delivery at 38 6/7 weeks. She reports feeling well overall this morning. No abdominal cramping and 0-2/10 pain well managed on analgesics. Voiding well. Tolerating meals overnight without difficulty. Patient has been able to ambulate some. Passing gas and had bowel movement. Has persistent lochia with some improvement this morning. Currently . Review of Systems Review of Systems: ROS Denies fever or chills. Denies shortness of breath or cough. Denies chest pain. Denies breast pain. Denies dysuria. Denies leg pain or leg swelling. Physical Exam Physical Exam: PE General: Alert, oriented. No acute distress. Cardiac: Regular rate and rhythm. No murmurs. Respiratory: Clear to auscultation bilaterally a/p, no wheezes/rales/rhonchi. No increased work of breathing. Symmetrical chest rise. No respiratory distress. Abdomen: Soft, nontender, nondistended. Bowel sounds present. Uterus: Uterine fundus firm, palpable 2 cm below umbilicus. Lower Extremities: No lower extremity edema or swelling. No deep calf pain. Janae's negative bilaterally. Results & Data ([facility]) Vital Signs (Past 12 Hours) Vital Signs Temp Pulse Resp BP 11/22/19 00:00 36.6 C 77 18 103/64 11/21/19 20:45 36.7 C 97 H 18 118/80 Resident Activity Tracking Resident Involvement: Resident Care Provided Care Provided: OB Delivery
[2019-11-22 06:25] LABS: Hematocrit (blood only) 35.1 % (37-47); Hemoglobin 11.7 g/dL (12.0-16.0)
[2019-11-22] MEDS: DOCUSATE SODIUM 100 MG CAP PO SCH (08:15)
[2019-11-22] MEDS: PRENATAL VITAMIN 1 TAB PO SCH (08:15)
[2019-11-22] MEDS: IBUPROFEN 600 MG TAB PO PRN (08:15)
== END 2019-11-22 11:20 | disposition home or self-care (01) | DRG 807 ==
LOC: 4S1 20:16 → OPB 20:16 → 4S1 21:08 → 4S2 11-21 01:31